=== PATIENT | male | born 1940 | race Caucasian/White ===

== ENCOUNTER 2017-05-15 16:44 | Emergency (ER) | payer MEDICARE, OTHER ==
[2011-09-30 09:13] VITALS: BMI 28.5
[2017-05-15 17:11] LABS: BASOPHILS 0.4 % (0-2); EOSINOPHILS 3.2 % (0-7); HEMATOCRIT 43.8 % (42.0-54.0); HEMOGLOBIN 15.2 g/dL (13.5-17.5); IMMATURE GRANULOCYTES 0.2 % (0-5); LYMPHOCYTES 25.7 % (15-50); MCHC 34.7 g/dL (31.0-37.0); MCV 86.6 fL (80.0-100.0); MEAN PLATELET VOLUME 10.9 fL (7.4-10.4); MONOCYTES 9.7 % (2-11); NEUTROPHILS 60.8 % (40-80); PLATELET COUNT 199 10x3/uL (130-400); RBC 5.06 10x6/uL (4.20-6.10); RDW 13.2 % (11.5-14.5); WBC 5.7 10x3/uL (4.8-10.8)
[2017-05-15 17:24] LABS: ALBUMIN 3.9 g/dL (3.4-5.0); ANION GAP 12.9 mmol/L (8-16); BILIRUBIN - TOTAL 1.75 mg/dL (0.2-1.3); CALCIUM 8.8 mg/dL (8.5-10.1); CARBON DIOXIDE 26.5 mmol/L (21.0-32.0); CREATININE - SERUM 1.4 mg/dL (0.6-1.3); POTASSIUM - SERUM 4.4 mmol/L (3.5-5.1); PROTEIN - SERUM 7.3 g/dL (6.4-8.2)
[2017-05-15 17:27] LABS: TROPONIN-I 0.02 ng/mL (0.000-0.060)
[2017-05-15 19:54] LABS: INR 3.24 (0.85-1.17); PROTIME 33.4 SECONDS (11.6-15.0)
[2017-05-15 21:10] LABS: APTT 37.7 SECONDS (22.8-39.4)
== END 2017-05-15 21:14 | disposition home or self-care (01) ==
LOC: D.ER 16:44
PROVIDERS: Emergency Medicine; Physician Assistant
DX: R00.1 Bradycardia, unspecified (principal); R53.83 Other fatigue; I10 Essential (primary) hypertension; Z86.79 Personal history of other diseases of the circulatory system; Z79.01 Long term (current) use of anticoagulants

== ENCOUNTER 2017-08-24 10:39 | Outpatient (CLI) | payer MEDICARE, OTHER ==
[~2017-08-24] VITALS: Ht 182.9 cm; Wt 104.5 kg
--- NOTE | ~2017-08-24 | HEMODYNAMI ---
PATIENT:JULIANE CHASE V MEDICAL RECORD: [id number] : 44 LOCATION:DCjCAT ADMISSION DATE: 08/24/17 Generatedon:08/24/201714:14 Patient name: JULIANE CHASE Patient #: [id number] SSN: DO B: 1940 Date of study: 08/24/2017 Page: Of Hemodynamic Procedure Report Patient Data Patient Demographics Procedure consent was obtained First Name: JULIANE Gender: Male Last Name: RENA : 1940 Middle Initial: V Age: 77 year(s) Patient #: [id number] Race: Unknown Additional ID: [id number] Contact details Address: [address] [place] [address] [place] State: [place] City: [place] Zip code: [address] Past Medical History Allergies Allergen Reaction Date Comments Reported Other allergy 08/24/2017 CODEINE Admission Admission Data Admission Date: 08/24/2017 Admission Time: 10:39 Height (in.): 6 BSA: 0.38 (m2) Height (cm.): 15.24 BMI: 4609.01 (kg/m2) Weight (lbs.): 236 Weight (kg.): 107.05 Lab Results Lab Result Date: 08/24/2017 Lab Result Time: 0:00 Biochemistry Name Units Result Min Max BUN mg/dl 23 --(----)-* 7 18 Creatinine mg/dl 1.4 --(----)*- 0.6 1.3 CBC Name Units Result Min Max Hemoglobin g/dl 15.5 --(-*--)-- 13.5 17.5 Procedure Procedure Types Cath Procedure Diagnostic Procedure PPM/ICD PPM Dual Implant Miscellaneous Procedures Moderate Sedation up to 15 minutes Procedure Description Procedure Date Procedure Date: 08/24/2017 Procedure Start Time: 13:44 Procedure End Time: 14:13 Procedure Staff Name Function Vinh Ibarra MD Performing Physician Cristopher Carlton MD Assisting physician Iliana Ivan RT Monitor Lizett Doss RT Scrub Gilmer Barraza RN Nurse Otis Haider RN Brake Lining Finisher Asbestos Procedure Data Cath Procedure Fluoroscopy Diagnostic fluoroscopy Total fluoroscopy Time: 1 time: 1 min min Diagnostic fluoroscopy Total fluoroscopy dose: dose: 60.38 mGy 60.38 mGy Estimated blood loss: 10 ml Procedure Complications No complications Procedure Medications Medication Administration Route Dosage Oxygen NC 2 l/min Lidocaine 1% with added to field 20 ml Epi Bupivacaine 0.5% S.Q. ml Ancef Irrigation Topical 1 g (1gm/500ml NS) Ancef (1Gm/50ml NS) I.V.P.B 1 g Fentanyl I.V. 50 mcg Versed I.V. 1 mg Fentanyl I.V. 50 mcg Versed I.V. 1 mg Fentanyl I.V. 50 mcg Fentanyl I.V. 50 mcg Hemodynamics Rest BSA: 0.38 (m2) HGB: 15.5 (g/dl) O2 Consumption: Estimated: 40.45 (ml/min) O2 Con sumption indexed: Estimated:106.45 (ml/min/m) Heart Rate: 48 (bpm) Snapshots Pre Cath Intra NCS Post Cath Vital Signs Time Heart Resp SPO2 etCO2 NIBP (mmHg) Rhythm Pain Sedation Rate (ipm) (%) (mmHg) Status Level (bpm) 13:37:34 47 15 97 36.7 164/88(140) NSR 0 (11) 10(A) , No pain 13:42:55 49 16 98 35.9 168/82(147) NSR 0 (11) 10(A) , No pain 13:47:26 48 16 98 38.9 168/83(139) NSR 0 (11) 9(A) , No pain 13:52:00 48 15 96 38.9 162/84(139) NSR 0 (11) 9(A) , No pain 13:56:33 52 14 96 38.1 153/82(122) NSR 0 (11) 9(A) , No pain 14:01:44 60 16 97 0 155/84(108) NSR 0 (11) 9(A) , No pain 14:06:08 64 16 98 0 154/86(138) NSR 0 (11) 10(A) , No pain 14:10:36 70 16 98 0 156/87(115) NSR 0 (11) 10(A) , No pain Medications Time Medication Route Dose Verified Delivered Reason Notes Effecti veness by by 13:41:01 Oxygen NC 2 Vinh Buffie used for l/min FredCj Barraza chief nurse executive MD 13:41:21 Lidocaine added 20 ml Cristopher Nicholas for local 1% with Epi to Brandt Carlton MD anesthetic field 13:41:42 Bupivacaine S.Q. ml Cristopher Nicholas for local 0.5% Brandt Carlton MD anesthetic 13:42:00 Ancef Topical 1 g Cristopher Lanceian used for Irrigation Brandt Carlton MD procedure (1gm/500ml NS) 13:42:15 Ancef I.V.P.B 1 g Cristopher Scherer Per (1Gm/50ml Brandt Barraza RN physician NS) 13:44:48 Fentanyl I.V. 50 Cristopher Freemanie for [facility] Brandt Barraza RN sedation 13:44:56 Versed I.V. 1 mg Cristopher Freemanie for Brandt Barraza RN sedation 13:48:58 Fentanyl I.V. 50 Cristopher Freemanie for [facility] Brandt Barraza RN sedation 13:50:14 Versed I.V. 1 mg Cristopher Freemanie for Brandt Barraza RN sedation 13:58:10 Fentanyl I.V. 50 Jain Buffie for [facility] [place] Brandt Barraza RN sedation 14:07:08 Fentanyl I.V. 50 Jain Buffie for [facility] Brandt Barraza RN sedation Procedure Log Time Note 12:53:22 Patient Height : 6 inches 12:53:25 Patient Weight : 236 lbs 12:53:56 Signed procedure consent form obtained from patient. 12:53:59 Diagnostic Cath status Elective 12:54:00 Time tracking: Regular hours 12:54:04 Plan of Care:Hemodynamics will remain stable., Cardiac rhythm will remain stable., Comfort level will be maintained., Respiratory function will remain adequate., Patient/ family verbilizes understanding of procedure., Procedure tolerated without complication., Recovers from procedure without complications.. 12:57:19 Lab Result : BUN 23 mg/dl 12:57:19 Lab Result : Creatinine 1.4 mg/dl 12:57:19 Lab Result : Hemoglobin 15.5 g/dl 12:58:13 Patient allergic to Other allergyCODEINE 13:10:41 Otis Haider RN sent for patient. Start room use. 13:24:16 Patient received from Pre/Post Procedure Room to CCL 3 Alert and oriented. Tansferred to table in Supine position. 13:24:17 Warm blankets applied, and katt hugger turned on for patient comfort. 13:24:17 Correct patient and procedure confirmed by team. 13:24:19 ECG and BP/O2 sat monitors applied to patient. 13:36:08 Vital chart was started 13:37:19 Baseline sample Acquired. 13:37:36 Rhythm: atrial fibrillation 13:37:40 Full Disclosure recording started 13:37:49 H&P Date Dictated: 08/20/2017 Within 30 days and on chart., H&P Addendum completed by physician on day of procedure. (MUST COMPLETE FOR ALL OUTPATIENTS). 13:37:51 Pre-procedure instructions explained to patient. 13:37:51 Pre-op teaching completed and patient verbalized understanding. 13:37:53 Family in patients room. 13:37:54 Patient NPO since Midnight. 13:37:56 Is the patient allergic to Iodine/contrast media? No. 13:37:58 Is patient on blood thinner?Yes 13:38:58 PT. HELD COUMADIN SINCE 2. 13:39:01 Patient diabetic? No. 13:39:03 Previous problem with sedation/anesthesia? No ? 13:39:04 Snore? Yes 13:39:05 Sleep apnea? Yes 13:39:06 Deviated septum? No 13:39:07 Opens mouth fully? Yes 13:39:08 Sticks out tongue? Yes 13:39:10 Airway obstruction? No ? 13:39:12 Dentures? No ? 13:39:55 IV patent on arrival in left hand with 0.9% NaCl at KVO. 13:39:58 Lab results completed and on chart. 13:40:02 Left chest area was prepped with chlora-prep and draped in sterile fashion 13:40:04 Alarms reviewed by R. N. 13:40:04 Sharps counted by scrub and verified by R.N. 13:40:12 Mepilex Dressing (927979) opened to sterile field. 13:41:01 Oxygen 2 l/min NC was administered by Gilmer Barraza RN; used for procedure; 13:41:21 Lidocaine 1% with Epi 20 ml added to field was administered by Cristopher Carlton MD; for local anesthetic; 13:41:42 Bupivacaine 0.5% ml S.Q. was administered by Cristopher Carlton MD; for local anesthetic; 13:42:00 Ancef Irrigation (1gm/500ml NS) 1 g Topical was administered by Cristopher Carlton MD; used for procedure; 13:42:15 Ancef (1Gm/50ml NS) 1 g I.V.P.B was administered by Gilmer Barraza RN; Per physician; :42:44 --------ALL STOP TIME OUT------ 13:42:44 Final Timeout: patient, procedure, and site verified with staff and physician. All members of the team are in agreement. 13:42:50 Left chest site verified by team. 13:42:53 Physical assessment completed. ASA score P 3 - A patient with severe systemic disease as per Vinh Ibarra MD. 13:42:56 Sedation plan: IV Moderate Sedation Medication:Versed, Fentanyl 13:43:13 Medtronic Adapta PPM Dual Generator ADDR01 opened to sterile field. 13:43:28 Medtronic 4574-45 PPM Lead opened to sterile field. 13:43:39 Medtronic 4092-52 PPM Lead opened to sterile field. 13:44:08 Procedure started. 13:44:17 Medtronic representative government relations EDGARD CHIANG present for procedure. 13:44:40 Pre sharps counted by scrub and verified by RN: Sutures: 14; Sponges: 5; Stick needles: 2; Skin needles: 2; Blade: 1; Cautery: 1 13:44:43 Grounding pad site Left thigh. 13:44:45 Grounding pad site free from injury. 13:44:48 Fentanyl 50 mcg I.V. was administered by Gilmer Barraza RN; for sedation; 13:44:52 Lidocaine 1% was administered to left subclavicular area by Cristopher Carlton MD . 13:44:56 Versed 1 mg I.V. was administered by Gilmer Barraza RN; for sedation; 13:48:58 Fentanyl 50 mcg I.V. was administered by Gilmer Barraza RN; for sedation; 13:49:05 Incision made to left subclavicular area. 13:50:14 Versed 1 mg I.V. was administered by Gilmer Barraza RN; for sedation; 13:51:28 Generator pocket made/opened. 13:52:16 Left subclavian vein accessed with 7Fr Peel Away Sheath. 13:53:03 Left subclavian vein accessed with 7Fr Peel Away Sheath. 13:54:24 Ventricular lead inserted and advanced. 13:55:01 Atrial lead inserted and advanced. 13:56:14 Ventricular lead positioned. 13:56:46 Ventricular lead tested. 13:57:22 Atrial lead positioned. 13:57:29 Atrial lead tested. 13:58:10 Fentanyl 50 mcg I.V. was administered by Gilmer Barraza RN; for sedation; 13:58:19 Peel-a-way sheath was split and removed. 13:58:27 Peel-a-way sheath was split and removed. 13:59:13 PPM Dual was attached to lead(s) and inserted into pocket. 13:59:18 PPM Dual was inserted subcutaneously to left chest. 14:02:23 Atrial lead attachment was completed with 2-0 silk. 14:02:26 Ventricular lead attachment was completed with 2-0 silk. 14:02:57 Device pocket was irrigated with Ancef. 14:03:30 Subcutaneous closure was completed with 3-0 vicryl plus. 14:04:08 Skin closure was completed with 5-0 monocryl. 14:06:22 Parameters-- Generator: Mode: AAIR/DDR. Lower Rate: 60bpm. Upper Rate: 130bpm. 14:07:08 Fentanyl 50 mcg I.V. was administered by Gilmer Barraza RN; for sedation; 14:07:15 Parameters--Ventricular P/R Wave: 9.7mV. Current: 1.2mA; Threshold: 0.7 AT 0.5V; Impedence: 916OHMS. 14:07:45 Parameters--Atrial P/R Wave: 2.3mV. Current: 0.3mA; Threshold: 0.2 AT 0.5V; Impedence: 663OHMS. 14:07:57 Lt Chest incision was dressed with Mepilex dressing. 14:08:02 Procedure ended.(Physican Out) 14:08:42 Fluoroscopy time 01.00 minutes. 14:08:51 Fluoroscopy dose: 60.38 mGy 14:08:51 Flurop Dose total: 60.38 14:09:09 Sharps counted by scrub and verified by R.N. 14:09:24 Post sharps counted by scrub and verified by RN: Sutures: 14; Sponges: 5; Stick needles: 2; Skin needles: 2; Blade: 1; Cautery: 1 14:09:53 Insertion/operative site no bleeding no hematoma. 14:09:59 Post-op/insertion site Left Chest area dressed using a Mepilex dressing. 14:10:07 Post-procedure physical assessment completed. ASA score P 2 - A patient with mild systemic disease as per Vinh Ibarra MD. 14:10:13 Post procedure rhythm: paced 14:10:15 Estimated blood loss: 10 ml 14:10:17 Post procedure instruction explained to patient.Patient verbalizes understanding. 14:10:21 Patient needs reinforcement of post procedure teaching. 14:11:16 Procedure type changed to Cath procedure, Diagnostic procedure, PPM/ICD, PPM Dual Implant, Miscellaneous Procedures, Moderate Sedation up to 15 minutes 14:11:32 Procedure and supply charges have been captured, reviewed, submitted and are correct. 14:11:34 Procedure Complication : No complications 14:12:47 Vital chart was stopped 14:12:50 See physician's report for complete and final results. 14:13:19 Report given to PCU. 14:13:22 Patient transfered to PCU with Bed. 14:13:27 Procedure ended. 14:13:27 Full Disclosure recording stopped 14:13:32 End room use (Document Last) Device Usage Item Name Manufacture Quantity Catalog Hospital Part Current Minimal Lot# / Number Charge Number Stock Stock Serial# Code Mepilex Hoffman 1 [id number] 5 [facility] ([id number]) Medtronic Medtronic 1 ADDR01 [id number] [id number] 5 [id number] Adapta PPM Dual Generator ADDR01 Medtronic Medtronic 1 4574-45 [id number] [id number] 5 EXP 4574-45 2019. 09.08 PPM Lead [id number] Medtronic Medtronic 1 52 [id number] 5 EXP 52 2018. 06.27 PPM Lead [id number] Signature Audit [place] Stage Time Signature Unsigned Intra-Procedure 08/24/2017 Iliana Ivan 2:14:15 PM RT(R) Signatures Monitor : Iliana Ivna Signature : RT Date : Time : [address] [place] [address]
--- NOTE | ~2017-08-24 | OP ---
PATIENT NAME: JULIANE CHASE V MEDICAL RECORD: [id number] :42 LOCATION:D.CAT ADMISSION DATE: SURGEON: FOREIGN HARPER MD DATE OF OPERATION: 08/24/2017 PREOPERATIVE DIAGNOSES: 1. Sick sinus syndrome. 2. Bradycardia. 3. Hypertension. POSTOPERATIVE DIAGNOSES: 1. Sick sinus syndrome. 2. Bradycardia. 3. Hypertension. PROCEDURES: 1. Left subclavian vein dual lumen pacemaker placement. 2. Fluoroscopic interpretation. SURGEON: Foreign Harper MD CO-SURGEON: Vinh Ibarra MD REPORT OF PROCEDURE: The patient's left chest was prepped and draped in sterile fashion. A 20 mL of 1% lidocaine with epinephrine was infused into the surrounding tissues. A skin incision was made on the left superolateral chest and a subcutaneous pouch was made over the pectoral fascia. Needle sticks times 2 were used to cannulate the left subclavian vein and guidewires were advanced with ease. Fluoro was used to note that the wires were in good position in the venous system. The dilator and trocar devices were placed over the wires. The wires and dilators were removed and the 2 leads were inserted. At this point, Dr. Ibarra positioned the leads appropriately in the patient's heart. Once the leads were noted to be functioning appropriately, then they were sutured into place with #0 Ti-Cron. The pacemaker was then affixed to the leads and placed in the subcutaneous pouch. The pacemaker was then sutured to the pectoral fascia using #0 Ti-Cron. The wound was then irrigated out with antibiotic solution. The subcutaneous tissues were then reapproximated with interrupted 3-0 Vicryl and the skin was closed with running subcutaneous 5-0 Monocryl. COMPLICATIONS: None. CONDITION: Stable. ANESTHESIA: Local MAC. BLOOD LOSS: Minimal. TRANSINT:[id number] Voice Confirmation ID: [id number] DOCUMENT ID: [id number] OPERATIVE REPORT [id number] JULIANE CHASE V FOREIGN HARPER MD at 1044 CC: [id number] DICTATION DATE: 08/24/17 1430 ORDER ENTRY ADMINISTRATOR: 08/24/17 1630 DEP CLI 08/25/17 [address] [place] [address]
--- NOTE | ~2017-08-24 | OP ---
PATIENT NAME: JULIANE CHASE V MEDICAL RECORD: [id number] :42 LOCATION:D.CAT ADMISSION DATE: SURGEON: TESFAYE MORENO MD DATE OF OPERATION: 08/24/2017 PROCEDURE: Lead portion of permanent pacemaker placement. INDICATION: Sick sinus syndrome with robel escape rhythms. SURGEON: Cristopher Carlton MD DESCRIPTION OF PROCEDURE: After left subclavian was cannulated via modified Seldinger technique via Dr. Carlton first under fluoroscopic guidance, I placed the RV lead in the RV apex without difficulty. Next, after adequate R waves and thresholds were obtained, I then placed the right atrial lead in right atrial appendage without difficulty. After adequate R waves and thresholds were obtained, the leads were attached to appropriate poles of the generator and the pocket was closed via Dr. Carlton. IMPRESSION: Successful lead portion of permanent pacemaker placement. COMPLICATIONS: None. ESTIMATED BLOOD LOSS: Minimal. DISPOSITION: To the floor, stable. TRANSINT:[id number] Voice Confirmation ID: [id number] DOCUMENT ID: [id number] TESFAYE MORENO MD at 1512 CC: [id number] DICTATION DATE: 08/24/17 1410 EXAMINER OF CURRENCY: 08/24/17 1419 DEP CLI 08/25/17 [address] [place] [address]
[2017-08-24] MEDS ORDERED: ATARAX 25 MG TA25 MG PO (10:54)
[2017-08-24] MEDS ORDERED: VALIUM 2 MG TAB2 MG PO (10:55)
[2017-08-24] MEDS ORDERED: COUMADIN5 MG PO (10:55)
[2017-08-24] MEDS ORDERED: ZOCOR40 MG PO (10:56)
[2017-08-24] MEDS ORDERED: BETAPACE 80 MG80 MG PO (10:56)
[2017-08-24] MEDS ORDERED: ELAVIL25 MG PO (10:57)
[2017-08-24] MEDS ORDERED: HYDROCHLOROTH12.5 M1 PO (10:57)
[2017-08-24] MEDS ORDERED: OMEPRAZOLE20 M1 PO (10:57)
[2017-08-24] MEDS ORDERED: NORVASC10 MG PO (10:58)
[2017-08-24] MEDS ORDERED: PRINIVIL20 MG PO (10:58)
[2017-08-24 11:14] VITALS: BP 151/71; BMI 31.2
[2017-08-24 11:24] LABS: HEMATOCRIT 44.6 % (42.0-54.0); HEMOGLOBIN 15.5 g/dL (13.5-17.5); MCH 29.2 pg (26.0-34.0); MCHC 34.8 g/dL (31.0-37.0); MCV 84.2 fL (80.0-100.0); RBC 5.3 10x6/uL (4.20-6.10); RDW 13.4 % (11.5-14.5); WBC 6.6 10x3/uL (4.8-10.8)
[2017-08-24 11:36] LABS: APTT 27.9 SECONDS (22.8-39.4); INR 1.44 (0.85-1.17); PROTIME 17.1 SECONDS (11.6-15.0)
[2017-08-24 11:39] LABS: ANION GAP 12.9 mmol/L (8-16); CALCIUM 8.7 mg/dL (8.5-10.1); CREATININE - SERUM 1.2 mg/dL (0.6-1.3); POTASSIUM - SERUM 3.9 mmol/L (3.5-5.1)
[2017-08-24 14:46] VITALS: BP 173/81; Ht 182.9 cm; Wt 104.5 kg
[2017-08-24 20:00] VITALS: BP 136/72
[2017-08-25] VITALS: BP 139/67
[2017-08-25 04:00] VITALS: BP 147/72
[2017-08-25 09:10] VITALS: BP 153/78
== END 2017-08-25 10:27 | disposition home or self-care (01) ==
LOC: D.CATH 10:39 → D.M2 14:30 → D.CATH 08-25 10:27
PROVIDERS: Internal Medicine Cardiovascular Disease
DX: I49.5 Sick sinus syndrome (principal); I10 Essential (primary) hypertension; Z01.812 Encounter for preprocedural laboratory examination

== ENCOUNTER 2017-09-05 11:08 | Emergency (ER) | payer MEDICARE, OTHER ==
[2017-08-24 14:46] VITALS: BMI 31.2
[~2017-09-05 11:08] MED LIST: ATARAX 25 MG TA25 MG PO; BETAPACE 80 MG80 MG PO; COUMADIN5 MG PO; ELAVIL25 MG PO; HYDROCHLOROTH12.5 M1 PO; NORVASC10 MG PO; OMEPRAZOLE20 M1 PO; PRINIVIL20 MG PO; VALIUM 2 MG TAB2 MG PO; ZOCOR40 MG PO
[2017-09-05 12:02] LABS: BASOPHILS 0.5 % (0-2); EOSINOPHILS 4.4 % (0-7); HEMATOCRIT 45.5 % (42.0-54.0); HEMOGLOBIN 15.8 g/dL (13.5-17.5); LYMPHOCYTES 30.1 % (15-50); MCHC 34.7 g/dL (31.0-37.0); MCV 86.5 fL (80.0-100.0); MEAN PLATELET VOLUME 10.6 fL (7.4-10.4); MONOCYTES 10.8 % (2-11); NEUTROPHILS 54.2 % (40-80); PLATELET COUNT 194 10x3/uL (130-400); RBC 5.26 10x6/uL (4.20-6.10); WBC 5.6 10x3/uL (4.8-10.8)
[2017-09-05 12:16] LABS: ALKALINE PHOSPHATASE 100 U/L (46-116); ALT (SGPT) 15 U/L (10-68); BILIRUBIN - TOTAL 1.43 mg/dL (0.2-1.3); CALC OSMOLALITY 280 mosm/kg (275-300); CALCIUM 9.1 mg/dL (8.5-10.1); CARBON DIOXIDE 29.7 mmol/L (21.0-32.0); CHLORIDE - SERUM 102 mmol/L (98-107); CREATININE - SERUM 1.2 mg/dL (0.6-1.3); GLUCOSE 99 mg/dL (74-106); POTASSIUM - SERUM 4.2 mmol/L (3.5-5.1); PROTEIN - SERUM 7.7 g/dL (6.4-8.2); SODIUM 140 mmol/L (136-145); UREA NITROGEN 19 mg/dL (7-18); eGFR NON AFRICAN AMERICAN 63 mL/min (90-120)
[2017-09-05 12:23] LABS: APTT 35.8 SECONDS (22.8-39.4); INR 2.75 (0.85-1.17); PROTIME 28.4 SECONDS (11.6-15.0)
[2017-09-05 12:24] LABS: D-DIMER-QUANTITATIVE 0.36 ug/mLFEU (0.20-0.54)
[2017-09-05 12:27] LABS: CKMB 0.5 U/L (0.0-3.6); CREATINE KINASE 109 UL (21-232); PRO BNP 443 pg/mL (0-450); TROPONIN-I < 0.017 ng/mL (0.000-0.060)
== END 2017-09-05 16:06 | disposition home or self-care (01) ==
LOC: D.ER 11:08
PROVIDERS: Family Medicine
DX: I10 Essential (primary) hypertension (principal); Z95.0 Presence of cardiac pacemaker

== ENCOUNTER → 2018-01-07 12:49 | Outpatient (CLI) | payer MEDICARE, OTHER ==
[2017-08-24 14:46] VITALS: BMI 31.2
[~2018-01-07 12:49] MED LIST changes: +BAYER CHEWABLE81 MG PO; +CATAPRES0.2 MG PO; +FLOMAX0.4 MG PO; +HYDROCODONE-APA1 TAB PO; +NAPROXEN SODIU220 M1 PO; +TENORMIN100 MG PO; +ZYRTEC10 MG PO
== END | disposition home or self-care (01) ==
LOC: D.CT 12:49
DX: I73.9 Peripheral vascular disease, unspecified (principal)

== ENCOUNTER 2018-01-12 21:30 | Emergency (ER) | payer MEDICARE, OTHER ==
[~2018-01-12] VITALS: Ht 182.9 cm; Wt 109.1 kg
[~2018-01-12 21:30] MED LIST changes: -BAYER CHEWABLE81 MG PO; -CATAPRES0.2 MG PO; -FLOMAX0.4 MG PO; -HYDROCODONE-APA1 TAB PO; -NAPROXEN SODIU220 M1 PO; -TENORMIN100 MG PO; -ZYRTEC10 MG PO
[2018-01-12 21:36] VITALS: Ht 182.9 cm; Wt 109.1 kg
[2018-01-12 22:15] LABS: BASOPHILS 0.3 % (0-2); EOSINOPHILS 2.7 % (0-7); HEMATOCRIT 43.6 % (42.0-54.0); HEMOGLOBIN 15.4 g/dL (13.5-17.5); IMMATURE GRANULOCYTES 0.1 % (0-5); LYMPHOCYTES 17.4 % (15-50); MCH 30.7 pg (26.0-34.0); MCHC 35.3 g/dL (31.0-37.0); MCV 86.9 fL (80.0-100.0); MEAN PLATELET VOLUME 9.8 fL (7.4-10.4); MONOCYTES 7.4 % (2-11); NEUTROPHILS 72.1 % (40-80); PLATELET COUNT 182 10x3/uL (130-400); RBC 5.02 10x6/uL (4.20-6.10); RDW 13.3 % (11.5-14.5); WBC 6.7 10x3/uL (4.8-10.8)
[2018-01-12 22:31] LABS: ALBUMIN 3.8 g/dL (3.4-5.0); ANION GAP 13.5 mmol/L (8-16); BILIRUBIN - TOTAL 1.39 mg/dL (0.2-1.3); CARBON DIOXIDE 25.4 mmol/L (21.0-32.0); CREATININE - SERUM 1.3 mg/dL (0.6-1.3); POTASSIUM - SERUM 3.9 mmol/L (3.5-5.1); PROTEIN - SERUM 7.2 g/dL (6.4-8.2)
[2018-01-12 23:44] LABS: APPEARANCE CLEAR (CLEAR); BILIRUBIN NEGATIVE (NEGATIVE); COLOR YELLOW (YELLOW); GLUCOSE NEGATIVE (NEGATIVE); KETONE NEGATIVE (NEGATIVE); NITRITE NEGATIVE (NEGATIVE); PROTEIN TRACE mg/dL (NEGATIVE); UROBILINOGEN NORMAL (NORMAL)
[2018-01-12 23:46] LABS: AMORPHOUS SEDIMENT <1+ /lpf (NONE SEEN); BACTERIA FEW /hpf (NONE SEEN); CALCIUM OXALATE CRYSTALS 0-5 /hpf (NONE SEEN); EPITHELIAL CELLS 0-5 /hpf (0-5); WHITE CELLS - URINE 0-5 /hpf (0-5)
[2018-01-12] MEDS ORDERED: FLOMAX0.4 MG PO (23:55)
[2018-01-12] MEDS ORDERED: HYDROCODONE-APA1 TAB PO (23:55)
[2018-01-13 00:39] VITALS: BP 190/80
[2018-03-24] MEDS ORDERED: ATARAX 25 MG TA25 MG PO (10:52)
[2018-03-24] MEDS ORDERED: BAYER CHEWABLE81 MG PO (10:53)
[2018-03-24] MEDS ORDERED: NAPROXEN SODIU220 M1 PO (10:54)
[2018-03-24] MEDS ORDERED: ZYRTEC10 MG PO (10:56)
[2018-03-24] MEDS ORDERED: CATAPRES0.2 MG PO (10:57)
[2018-03-24] MEDS ORDERED: TENORMIN100 MG PO (10:58)
== END 2018-01-13 01:07 | disposition home or self-care (01) ==
LOC: D.ER 21:30
PROVIDERS: Emergency Medicine
DX: N20.0 Calculus of kidney (principal); I10 Essential (primary) hypertension; Z95.0 Presence of cardiac pacemaker

== ENCOUNTER 2018-03-25 05:00 | Day surgery (SDC) | payer MEDICARE, OTHER ==
[2018-03-24 13:24] LABS: APTT 25.3 SECONDS (22.8-39.4); INR 1.22 (0.85-1.17)
[2018-03-24 13:27] LABS: ANION GAP 14.1 mmol/L (8-16); BILIRUBIN - TOTAL 1.95 mg/dL (0.2-1.3); CALCIUM 8.9 mg/dL (8.5-10.1); CARBON DIOXIDE 27.7 mmol/L (21.0-32.0); CREATININE - SERUM 1.3 mg/dL (0.6-1.3); POTASSIUM - SERUM 3.8 mmol/L (3.5-5.1); PROTEIN - SERUM 7.3 g/dL (6.4-8.2)
[2018-03-24 13:29] LABS: HEMATOCRIT 46.2 % (42.0-54.0); HEMOGLOBIN 16.2 g/dL (13.5-17.5); MCH 31.3 pg (26.0-34.0); MCHC 35.1 g/dL (31.0-37.0); MCV 89.2 fL (80.0-100.0); MEAN PLATELET VOLUME 10.9 fL (7.4-10.4); RBC 5.18 10x6/uL (4.20-6.10); RDW 12.9 % (11.5-14.5)
[2018-03-24 15:10] LABS: APPEARANCE CLEAR (CLEAR); BILIRUBIN NEGATIVE (NEGATIVE); COLOR YELLOW (YELLOW); GLUCOSE NEGATIVE (NEGATIVE); KETONE NEGATIVE (NEGATIVE); NITRITE NEGATIVE (NEGATIVE); PROTEIN NEGATIVE (NEGATIVE); SPECIFIC GRAVITY 1.025 (1.005-1.020); UROBILINOGEN NORMAL (NORMAL)
[2018-03-25] VITALS (26 sets, daily range): BP systolic 104–146; BP diastolic 38–92; Ht 182.9 cm; Wt 108.2 kg
[~2018-03-25] VITALS: Ht 182.9 cm; Wt 108.2 kg
--- NOTE | ~2018-03-25 | OP ---
PATIENT NAME: JULIANE CHASE V MEDICAL RECORD: [id number] :42 LOCATION:D.OPS ADMISSION DATE: SURGEON: KIM ROMERO MD DATE OF OPERATION: 03/25/2018 SURGEON: Kim Romero MD ANESTHESIA: General, Dr. Shah. OPERATION PERFORMED: 1. Retrograde sheath placement, left common femoral artery with ultrasound guidance. 2. Retrograde left external iliac arteriogram. 3. Selective right common iliac arteriogram. 4. Selective right common femoral arteriogram. 5. Selective superficial femoral artery. 6. Selective popliteal artery. 7. Diamondback atherectomy, right distal popliteal artery. 8. Diamondback atherectomy, posterior tibioperoneal artery trunk. 9. Diamondback atherectomy, superficial femoral artery. 10. Angioplasty of the popliteal, posterior tibial artery trunk. 11. Angioplasty of the superficial femoral artery with a 6 balloon followed by 7 balloon. Drug-eluting balloon was used in the distal popliteal and posterior tibioperoneal artery trunk. PREOPERATIVE DIAGNOSIS: Life limiting claudication, right lower extremity. POSTOPERATIVE DIAGNOSIS: Life limiting claudication, right lower extremity. 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 FINDINGS OF THE OPERATION: 1. Retrograde left external iliac arteriogram demonstrates diffuse disease, no significant stenoses. 2. Selective right common iliac artery arteriogram demonstrates diffuse disease, but no significant stenosis, good runoff into the hypogastric artery. 3. Selective right common femoral artery arteriogram demonstrates good flow into the profunda and proximal superficial femoral artery. 4. Selective superficial femoral artery demonstrates severe stenosis at the adductor canal, greater than 90%. 5. Selective popliteal arteriogram demonstrates severe distal popliteal disease as well as posterior tibioperoneal artery trunk. The anterior tibial artery is totally occluded. The peroneal artery has diffuse disease, but none significant. The posterior tibial artery has diffuse disease, but no significant stenoses. CONTRAST: 97 mL. FLUOROSCOPY TIME: 16 minutes 22 seconds. ESTIMATED BLOOD LOSS: Less than 20 cc. OPERATIVE REPORT [id number] JULIANE CHASE V DESCRIPTION OF PROCEDURE: After informed consent, adequate preoperative medication evaluation, the patient was brought to the operating room, placed on the table in the supine position. After induction of general endotracheal anesthesia and application of appropriate monitoring devices, the chest, abdomen, both groins and right leg were prepped and draped in a sterile field, utilizing Betadine scrub, alcohol, and Betadine solution. Betadine-impregnated drape was also used. Utilizing ultrasound guidance, the left proximal common femoral artery was cannulated with a micropuncture sheath and exchanged for a 5-Kittitian sheath. A retrograde arteriogram was performed. The patient was given a calculated dose of heparin. A wire and rim catheter were manipulated into the right common iliac artery and arteriogram performed. The wire was then manipulated into the superficial femoral artery. Exchange was made for a long 6-Kittitian sheath. An arteriogram in the proximal common femoral artery was performed demonstrated good flow into the proximal superficial femoral artery and profunda femoral artery. The catheter was then selected anteriorly proximal. Superficial femoral artery, there was diffuse disease in the proximal 1/3. There was high-grade greater than 90% stenosis at the level of the adductor canal. A wire was manipulated through this lesion and a popliteal arteriogram performed demonstrated diffuse distal popliteal disease with stenotic areas. The posterior tibioperoneal artery trunk was subtotally occluded. The peroneal artery was then selected with a Regalia wire and exchange made for an 0.035 exchange catheter. A ViperWire was then placed into the distal peroneal artery. A Diamondback atherectomy was then performed of the popliteal and posterior tibioperoneal artery trunk with an improved flow. This was followed by a 3.5 balloon, drug-eluting, with good result and only minor areas of stenosis. Attention was then turned toward the proximal popliteal, distal superficial femoral artery utilizing a Diamondback atherectomy. The artery was atherectomized. A 6 mm balloon was used and required high pressure, post-arteriogram demonstrated residual stenotic areas. Therefore, a 7 x 120 balloon was used with a good result and no significant stenoses. An arteriogram was then performed and there was no embolization distally and good flow through the superficial femoral artery and posterior tibioperoneal artery trunk into the digital arteries. The wires, catheter and sheaths were removed and then the patient was given a calculated dose of protamine to reverse the heparin. A 6-Kittitian Angio-Seal was used in the left common femoral artery with an excellent result in hemostasis. Sterile dressings were applied, transferred to the CV ICU for observation overnight. The patient tolerated the procedure well. TRANSINT:[id number] Voice Confirmation ID: [id number] DOCUMENT ID: [id number] KIM ROMERO MD at 1040 CC: [id number] DICTATION DATE: 03/25/18 1126 RN OUTPATIENT SURGERY: 03/25/18 1140 [facility] 03/26/18 [id number] [place] [address]
--- NOTE | ~2018-03-25 | HP ---
PATIENT: JULIANE CHASE V MEDICAL RECORD: [id number] ACCOUNT: [id number] LOCATION:D.OPS : 42 ADMISSION DATE: 03/25/18 PCP: KIM SHARPE MD HISTORY AND PHYSICAL EXAMINATION NameJULIANE CHASE (77yo, M) ID# [id number]. Date/Time03/17/2018 10:[id number]//1943Service Dept.NP_[facility] ClinicProviderEDSHANNON SHARPE MDInsuranceMed Primary: [place] Insurance # : [id number] Employer Name : RETIRED Med Secondary: [employer] [place] (POS) Insurance # : [id number] Policy/Group # : NATE Referring Provider Name : IMELDAJULIANE Employer Name : RETIRED Prescription: MDIM - Member is eligible. Chief Complaint PVD - peripheral vascular disease following pvd, requests to have surgery sooner than April as planned. Patient's Care Team Referring Provider (): JULIANE SEGURA: [address] [place] [phone], , Patient's Pharmacies [facility] ([place]): [address] [address], , Vitals BP:138/78 sitting R arm 03/17/2018 11:28 amHR:64/reg 03/17/2018 11:28 amHt:6 ft 03/17/2018 11:24 amWt:239 lbs 03/17/2018 11:25 amBMI:32.4 03/17/2018 11:25 amAllergies Reviewed Allergies CODEINE: VomitingMedications Reviewed Medications amitriptyline 25 mg tablet TK 1 T PO QD03/11/18 filledMEDIMPACTamLODIPine 5 mg tablet TK 1 T PO D003/03/18 ffskfdjbilsigezjqsvcyyms91/13/12 enteredTracie Stanleyatenolol 100 mg tablet TK 1 T PO BID03/04/18 filledsurescriptsatenolol 50 mg edqxng74/26/18 filledMEDIMPACTCartia XT 240 mg capsule,extended /10/17 filledMEDIMPACTcloNIDine HCl 0.1 mg tablet TK 1 T PO TID02/10/18 filledsurescriptscloNIDine HCl 0.2 mg tablet TK 1 T PO TID03/01/18 filledsurescriptsdiazePAM 2 mg yhsvol98/30/18 filledsurescriptsferrous sulfate 325 mg (65 mg iron) exfmhh43/08/17 filledMEDIMPACThydrALAZINE 10 mg tablet TK 1 T PO TID10/04/17 filledMEDIMPACThydroCHLOROthiazide 12.5 mg capsule TK 1 C PO QD01/10/18 filledMEDIMPACTHYDROcodone 10 mg-acetaminophen 325 mg hftiws31/12/18 filledMEDIMPACThydrOXYzine HCl 25 mg tablet TK 1 T PO QID PRN03/03/18 filledsurescriptslisinopril 20 mg tablet TK 1 T PO BID03/03/18 filledsurescriptsmetoprolol succinate ER 50 mg tablet,extended release 24 hr TK 1 T PO QD05/03/17 yzirlvEGQZJZBNTgzzajcso10/13/12 enteredTracie Stanleyomeprazole 20 mg capsule,delayed release TK 1 C PO D003/03/18 jlxhnmsjodaxdzhyqNgmNZCFE73/13/12 enteredTracie Stanleysimvastatin 40 mg tablet TK 1 T PO QPM03/03/18 filledsurescriptssotalol 80 mg tablet TK 1 T PO BID03/11/18 filledMEDIMPACTtamsulosin 0.4 mg /12/18 HISTORY AND PHYSICAL [id number] JULIANE CHASE V filledMEDIMPACTwarfarin 5 mg tablet TK 1 T PO QD03/03/18 filledsurescriptsProblems Reviewed Problems Atherosclerosis of arteries of the extremities - Onset: 01/24/2018, Bilateral Acute gastritis Hypertensive disorder Pain in limb Family History Reviewed Family History Mother- Heart disease - Hypertensive disorderFather- Myocardial infarctionSocial History Reviewed Social History Cardiology and General Family history of heart disease?: Y Smoking Status: Former smoker (Notes: QUIT 1986) High Cholesterol: Y High blood pressure: Y Diabetes: N Alcohol intake: None Occupation: retired Marital status: Caffeine intake: Moderate Seat belts used routinely: Y Sunscreen used routinely: N Smoke alarm in home: Y Surgical History Reviewed Surgical History BACK SURGERY 2015-MIGUEL [facility]NGEL LITHOTRIPSY 07/05/12 COLONOSCOPY 09/30/11 EGD-2011 Past Medical History Reviewed Past Medical History Angina: Y Chest Pain: Y Circulation Problems: Y Cold feet and legs: Y Coronary Artery Disease: Y GERD: Y Heartburn: Y High Blood Pressure: Y Hyperlipidemia: Y Hypertension: Y Insomnia: Y Kidney Disease: Y - STONES Pain in legs when walking: Y Peripheral Vascular Disease (PVD): Y Documents for Discussion N/A Screening None recorded. HPI Severe life limiting claudication right greater than the left HISTORY AND PHYSICAL [id number] JULIANE CHASE V ROS Patient reports exercise intolerance but reports no fever, no night sweats, no significant weight gain, and no significant weight loss. He reports muscle aches and muscle weakness but reports no arthralgias/joint pain, no back pain, and no swelling in the extremi ties. He reports no dry eyes, no irritation, and no vision change. He reports no difficulty hearing and no ear pain. He reports no frequent nosebleeds and no nose/sinus problems. He reports no sore throat, no bleeding gums, no snoring, no dry mouth, no mo u th ulcers, no oral abnormalities, and no teeth problems. He reports no jugular vein distension and no swollen glands. He reports no chest pain, no arm pain on exertion, no shortness of breath when walking, no shortness of breath when lying down, no palpit a tions, and no known heart murmur. He reports no cough, no wheezing, no shortness of breath, and no coughing up blood. He reports no abdominal pain, no vomiting, normal appetite, no diarrhea, not vomiting blood, no nausea, and no constipation. He reports n o incontinence, no difficulty urinating, no hematuria, and no increased frequency. He reports no abnormal mole, no jaundice, and no rashes. He reports no loss of consciousness, no weakness, no numbness, no seizures, no dizziness, and no headaches. He repor ts no depression, no sleep disturbances, feeling safe in relationship, and no alcohol abuse. He reports no fatigue. He reports no swollen glands and no bruising. He reports no runny nose, no sinus pressure, no itching, no hives, and no frequent sneezing. ROS as noted in the HPI Physical Exam Patient is a 77-year-old male. Constitutional: General Appearance healthy-appearing, well developed, and overweight. Level of Distress NAD. Ambulation ambulating normally. Cardiovascular: Apical Impulse not displaced or no thrill. Heart Auscultation normal s1 and s2, no rubs or gallops, and RRR and murmur (aortic flow murmur). Arterial Pulses no abdominal aorta bruits, femoral bruits, or popliteal bruits; popliteal diminished (bilateral) and dorsalis pedis diminished (bilaterally); and 2+ bilateral, carotid 2+ bilateral, and femoral 2+ bilateral. Edema no edema or varicosities. Lungs: Repiratory Effort no dyspnea. Percussion no hyperresonance or dullness or flatness. Auscultation no wheezin g, rhonchi, or rales / crackles and breathing sounds normal, good air movement, and CTA except as noted. Abdomen: Bowl Sounds normal. Inspection and Palpation no tenderness, guarding, masses, or rebound tenderness and soft and non-distended. Liver non-tender and no hepatomegaly. Spleen non-tender and no splenomegaly. Hernia none palpable. Musculoskeletal System: Gait And Stance normal gait and stance. Digits and Nails normal nails and no cyanosis. Neurologic: Cranial Nerves grossly intact. Reflexes DTRs 2+ bilaterally throughout. Sensation grossly intact. Lymph Nodes: Lymph Nodes no cervical LAD, supraclavicular LAD, axillary LAD, or inguinal LAD. Eyes: Lids and Conjunctivae no discharge or pallor and non-injected. Pupils PERRLA. Cornea grossly intact. EOM EOMI. Lens clear. Sclerae non-icteric. HISTORY AND PHYSICAL [id number] JULIANE CHASE V Neck: Neck no masses, enlarged lymph nodes, or carotid bruits and supple and trachea midline. Thyroid no enlargement or nodules and non-tender. Skin: Inspection and Palpation no rash, lesions, ulcers, jaundice, or abnormal nevi. Assessment / Plan Severe claudication lower extremities bilaterally limiting his life activities 1. Peripheral vascular disease I73.9: Peripheral vascular disease, unspecified PERIPHERAL ARTERIAL DISEASE OF THE LEG: CARE INSTRUCTIONS Discussion Notes I think that the patient would benefit from endovascular atherectomy of his right lower extremity. I have discussed his disease process with him and his in detail as well as the alternative methods of treatment. We discussed endovascular and open procedures including the expected benefits and risks which include bleeding, infection, stroke, , and they imponderables. They understand all of the above and he would like to proceed with planned surgery. Carotid Doppler study preoperatively Hold Coumadin preoperative Patient will schedule segments possible KIM SHARPE MD at 1040 CC: [id number] DICTATION DATE: 03/17/18 1040 REEL AND REWINDER OPERATOR: DM 03/22/18 1300 [facility] [place] 03/26/18 [facility] [address] [place] [address]
[~2018-03-25 05:00] MED LIST changes: +BAYER CHEWABLE81 MG PO; +CATAPRES0.2 MG PO; +FLOMAX0.4 MG PO; +HYDROCODONE-APA1 TAB PO; +NAPROXEN SODIU220 M1 PO; +TENORMIN100 MG PO; +ZYRTEC10 MG PO
[2018-03-26] VITALS (10 sets, daily range): BP systolic 117–148; BP diastolic 52–72
[2018-03-26 06:52] LABS: ALBUMIN 3.3 g/dL (3.4-5.0); ANION GAP 13.5 mmol/L (8-16); BILIRUBIN - TOTAL 1.36 mg/dL (0.2-1.3); CALCIUM 7.7 mg/dL (8.5-10.1); CARBON DIOXIDE 27.2 mmol/L (21.0-32.0); CREATININE - SERUM 1.4 mg/dL (0.6-1.3); POTASSIUM - SERUM 3.7 mmol/L (3.5-5.1); PROTEIN - SERUM 6.6 g/dL (6.4-8.2)
[2018-03-26 06:53] LABS: HEMATOCRIT 38.9 % (42.0-54.0); MEAN PLATELET VOLUME 10.9 fL (7.4-10.4); RBC 4.52 10x6/uL (4.20-6.10); RDW 12.8 % (11.5-14.5)
[2018-03-26 06:58] LABS: MCV 86.1 fL (80.0-100.0); WBC 12.8 10x3/uL (4.8-10.8)
[2018-03-26 08:40] LABS: INR 1.23 (0.85-1.17)
== END 2018-03-26 12:20 | disposition home or self-care (01) ==
LOC: OBSVTIME → D.OPS 05:00 → D.PAN 07:30 → D.CVICU 10:38 → OBSVTIME 10:38 → D.OPS 10:38 → D.PAN 13:00 → D.OPS 13:00 → D.CVICU 03-26 12:20
PROVIDERS: Internal Medicine Cardiovascular Disease
DX: I70.213 Atherosclerosis of native arteries of extremities with intermittent claudication, bilateral legs (principal); I10 Essential (primary) hypertension; I48.2 Chronic atrial fibrillation; I25.10 Atherosclerotic heart disease of native coronary artery without angina pectoris; Z01.810 Encounter for preprocedural cardiovascular examination; Z01.811 Encounter for preprocedural respiratory examination; Z01.812 Encounter for preprocedural laboratory examination

== ENCOUNTER → 2018-05-23 10:08 | Outpatient (CLI) | payer OTHER ==
[2018-03-25 11:48] VITALS: BMI 32.5
[2018-05-23 11:11] LABS: ALBUMIN 3.9 g/dL (3.4-5.0); ANION GAP 8.2 mmol/L (8-16); BILIRUBIN - TOTAL 1.3 mg/dL (0.2-1.3); CALCIUM 8.3 mg/dL (8.5-10.1); CARBON DIOXIDE 32.7 mmol/L (21.0-32.0); CREATININE - SERUM 1.4 mg/dL (0.6-1.3); POTASSIUM - SERUM 3.9 mmol/L (3.5-5.1); PROTEIN - SERUM 7.6 g/dL (6.4-8.2)
[2018-05-23 13:47] LABS: APPEARANCE HAZY (CLEAR); BACTERIA FEW /hpf (NONE SEEN); BILIRUBIN NEGATIVE (NEGATIVE); COLOR YELLOW (YELLOW); EPITHELIAL CELLS RARE /hpf (0-5); GLUCOSE NEGATIVE (NEGATIVE); KETONE NEGATIVE (NEGATIVE); NITRITE NEGATIVE (NEGATIVE); PROTEIN NEGATIVE (NEGATIVE); UROBILINOGEN NORMAL (NORMAL); WHITE CELLS - URINE OCC /hpf (0-5)
== END | disposition home or self-care (01) ==
LOC: D.US 10:08
DX: I73.9 Peripheral vascular disease, unspecified (principal)

== ENCOUNTER 2018-06-24 05:10 | Observation (INO) | payer MEDICARE, OTHER ==
[2018-06-22 14:53] LABS: HEMATOCRIT 45.9 % (42.0-54.0); HEMOGLOBIN 16.4 g/dL (13.5-17.5); MCH 31.2 pg (26.0-34.0); MCHC 35.7 g/dL (31.0-37.0); MCV 87.3 fL (80.0-100.0); MEAN PLATELET VOLUME 10.9 fL (7.4-10.4); RBC 5.26 10x6/uL (4.20-6.10); RDW 12.9 % (11.5-14.5); WBC 7.5 10x3/uL (4.8-10.8)
[2018-06-22 15:01] LABS: ALBUMIN 4.2 g/dL (3.4-5.0); ANION GAP 12.3 mmol/L (8-16); BILIRUBIN - TOTAL 1.77 mg/dL (0.2-1.3); CALCIUM 9.1 mg/dL (8.5-10.1); CREATININE - SERUM 1.2 mg/dL (0.6-1.3); POTASSIUM - SERUM 4.3 mmol/L (3.5-5.1); PROTEIN - SERUM 7.9 g/dL (6.4-8.2)
[2018-06-22 15:04] LABS: APTT 31.2 SECONDS (22.8-39.4); INR 1.8 (0.85-1.17); PROTIME 20.2 SECONDS (11.6-15.0)
[2018-06-22 15:30] LABS: APPEARANCE CLEAR (CLEAR); BILIRUBIN NEGATIVE (NEGATIVE); COLOR YELLOW (YELLOW); GLUCOSE NEGATIVE (NEGATIVE); KETONE NEGATIVE (NEGATIVE); NITRITE NEGATIVE (NEGATIVE); PROTEIN NEGATIVE (NEGATIVE); UROBILINOGEN NORMAL (NORMAL)
[2018-06-24] VITALS (35 sets, daily range): BP systolic 90–148; BP diastolic 41–77; BMI 32.6
[~2018-06-24] VITALS: Ht 182.9 cm; Wt 111.8 kg
--- NOTE | ~2018-06-24 | OP ---
PATIENT NAME: JULIANE CHASE V MEDICAL RECORD: [id number] :42 LOCATION:[facility] D.CV08 ADMISSION DATE:06/24/18 SURGEON: KIM ROMERO MD DATE OF OPERATION: 06/24/2018 SURGEON: Kim Romero MD ANESTHESIA: General, Dr. Shah. OPERATION PERFORMED: 1. A 5-Peruvian sheath placement retrogradely, right common femoral artery. 2. Retrograde right external iliac arteriogram. 3. Placement of a 6-Peruvian long sheath into the left common femoral artery. 4. Left common femoral arteriogram with runoff demonstrates diffuse disease with high-grade stenosis in the mid superficial femoral artery and popliteal artery. 5. Left popliteal arteriogram demonstrates subtotal occlusion of the posterior tibioperoneal artery trunk and total occlusion of the anterior tibial artery. 6. Diamondback atherectomy of left posterior tibioperoneal artery trunk utilizing a soft solid crown. 7. Diamondback atherectomy of left superficial femoral artery. 8. Angioplasty of the left superficial femoral artery times 2 utilizing 6 x 80 and 6 x 40 balloon. 9. Angioplasty of the left posterior tibioperoneal artery trunk with a 4 x 40 balloon. 10. Left popliteal arteriogram post-angioplasty demonstrates good flow through the popliteal artery into the peroneal artery with good collateralization to the posterior tibial artery. 11. Left common femoral arteriogram with runoff demonstrates good flow through the superficial femoral artery into the popliteal artery with runoff to the foot via the peroneal artery. There was no embolization and good flow into the foot. 12. Angio-Seal right common femoral artery. PREOPERATIVE DIAGNOSIS: Severe life-limiting claudication, left lower extremity. POSTOPERATIVE DIAGNOSES: Subtotal occlusion of the posterior tibioperoneal artery trunk and high-grade stenosis of the left superficial femoral artery. FINDINGS OF OPERATION: The fluoro time was 12 minutes 11 seconds. Contrast 113 mL. 1. Retrograde right external iliac arteriogram demonstrates diffuse disease, but nonocclusive. 2. Left common femoral arteriogram with runoff demonstrates high-grade stenosis in the mid superficial femoral artery and distal popliteal artery, peroneal artery trunk. 3. Popliteal arteriogram demonstrates subtotal occlusion of the posterior tibioperoneal artery trunk, total occlusion of the anterior tibial artery and proximal posterior tibial artery. 4. Status post Diamondback atherectomy demonstrates much improved flow through the posterior tibioperoneal artery trunk with residual stenosis. 5. Diamondback atherectomy superficial femoral artery demonstrates improved flow through the area; however, residual stenosis. 6. Status post angioplasty of the superficial femoral artery demonstrates a 10% to 15% residual stenosis, but good flow through the superficial femoral artery OPERATIVE REPORT [id number] JULIANE CHASE V and diffuse disease without obstruction. 7. Status post angioplasty of the posterior tibioperoneal artery trunk demonstrates good flow through the distal popliteal artery through the posterior tibioperoneal artery trunk and into the posterior tibial artery by collaterals and directly into the peroneal artery. After completion of angioplasties, a left common femoral arteriogram was performed demonstrated good flow through the superficial femoral artery into the popliteal artery with good flow through the peroneal artery to the foot with collateralizations to the anterior tibial and posterior tibial arteries. DESCRIPION OF PROCEDURE: After informed consent, adequate preoperative medication evaluation, the patient was brought to the operating room, placed on the table in the supine position. After induction of general endotracheal anesthesia and application of appropriate monitoring devices, the abdomen, both groin and left leg were prepped and draped in a sterile field, utilizing Betadine scrub, alcohol, and Betadine solution. A Betadine-impregnated drape was also used. Utilizing ultrasound guidance, a retrograde puncture was made utilizing micropuncture technique and a 4-Peruvian sheath placed. This was exchanged for a 5-Peruvian sheath. Retrograde arteriogram performed demonstrated diffuse nonocclusive disease, delineated the bifurcation. Utilizing a rim catheter and Glidewire, the left superficial femoral artery was cannulated and exchange made for an Amplatz wire. Exchange was then made for a 6-Peruvian long sheath into the left common femoral artery. Arteriogram performed with runoff demonstrated the disease utilizing a Regalia wire. The wire and 0.014 Quick-Cross catheter were placed into the peroneal artery. Exchange was made for a Viper wire. The patient then underwent Diamondback atherectomy of the posterior tibioperoneal artery trunk and mid superficial femoral artery. The superficial femoral artery was then angioplastied with 6 x 60 and 6 x 40 mm balloon with a good result. Attention was then turned toward the posterior tibioperoneal artery trunk where a 4 mm balloon used for angioplasty of the posterior tibioperoneal artery trunk and peroneal artery. Post-angioplasties, arteriograms were performed that demonstrated the good result through the superficial femoral artery and posterior tibioperoneal artery trunk. A left common femoral artery arteriogram was then performed with good flow through the superficial femoral artery, posterior tibioperoneal artery trunk, and good runoff to the foot through the peroneal artery. The catheters, wires and sheaths were removed and a 6-Peruvian Angio-Seal used to close the puncture site. The patient was given a calculated dose of protamine to reverse the heparin that was given at the first sheath placement. Sterile dressings were applied. The patient tolerated the procedure well and was transferred to the CV ICU in satisfactory condition. TRANSINT:[id number] Voice Confirmation ID: [id number] DOCUMENT ID: [id number] KIM ROMERO MD at 1313 CC: [id number] DICTATION DATE: 06/24/18 1036 STAMP ANALYST: 06/24/18 1058 DIS IN 06/25/18 [facility] [address] [place] [address]
[~2018-06-24 05:10] MED LIST changes: +ALEVE220 MG PO; -NAPROXEN SODIU220 M1 PO
[2018-06-24 06:14] LABS: INR 1.26 (0.85-1.17); PROTIME 15.3 SECONDS (11.6-15.0)
[2018-06-25] VITALS (12 sets, daily range): BP systolic 95–130; BP diastolic 47–68; Ht 182.9 cm; Wt 111.8 kg
[2018-06-25 06:24] LABS: HEMATOCRIT 37.4 % (42.0-54.0); HEMOGLOBIN 13.1 g/dL (13.5-17.5); MCV 85.8 fL (80.0-100.0); MEAN PLATELET VOLUME 10.7 fL (7.4-10.4); RBC 4.36 10x6/uL (4.20-6.10); RDW 12.9 % (11.5-14.5); WBC 11.8 10x3/uL (4.8-10.8)
[2018-06-25 06:47] LABS: ALBUMIN 3.1 g/dL (3.4-5.0); ANION GAP 13.5 mmol/L (8-16); BILIRUBIN - TOTAL 1.49 mg/dL (0.2-1.3); CALCIUM 7.9 mg/dL (8.5-10.1); CARBON DIOXIDE 26.4 mmol/L (21.0-32.0); CREATININE - SERUM 1.2 mg/dL (0.6-1.3); POTASSIUM - SERUM 3.9 mmol/L (3.5-5.1); PROTEIN - SERUM 6.5 g/dL (6.4-8.2)
== END 2018-06-25 12:50 | disposition home or self-care (01) ==
LOC: D.CVICU 05:10 → OBSVTIME 05:10 → D.SDCHOLD 05:10 → D.CVICU 05:10 → D.SDCHOLD 07:30 → D.CVICU 09:10
PROVIDERS: Internal Medicine Cardiovascular Disease; Thoracic Surgery (Cardiothoracic Vascular Surgery)
DX: I70.212 Atherosclerosis of native arteries of extremities with intermittent claudication, left leg (principal); I10 Essential (primary) hypertension; I25.10 Atherosclerotic heart disease of native coronary artery without angina pectoris; I48.0 Paroxysmal atrial fibrillation; G62.9 Polyneuropathy, unspecified

== ENCOUNTER → 2019-10-27 09:08 | Outpatient (CLI) | payer MEDICARE, BC ==
[2018-06-25 10:44] VITALS: BMI 32.6
== END | disposition home or self-care (01) ==
LOC: D.US 09:00
PROVIDERS: ATTEND Internal Medicine Cardiovascular Disease
DX: I70.213 Atherosclerosis of native arteries of extremities with intermittent claudication, bilateral legs (principal)

== ENCOUNTER → 2020-01-02 10:52 | Outpatient (CLI) | payer MEDICARE, BC ==
[2018-06-25 10:44] VITALS: BMI 32.6
== END | disposition home or self-care (01) ==
LOC: D.HCCECHO 10:52
PROVIDERS: ATTEND Internal Medicine Cardiovascular Disease
DX: I48.91 Unspecified atrial fibrillation (principal)

== ENCOUNTER → 2021-01-02 17:28 | Outpatient (CLI) | payer MEDICARE, BC ==
[2018-06-25 10:44] VITALS: BMI 32.6
== END | disposition home or self-care (01) ==
LOC: D.LABREF 17:28
PROVIDERS: ATTEND Orthopaedic Surgery
DX: M17.11 Unilateral primary osteoarthritis, right knee (principal)